=== PATIENT | male | born 1955 | race Two or more races ===

== ENCOUNTER 2019-12-06 04:06 | Emergency (ER) | payer SELFPAY ==
[~2019-12-06] VITALS: Ht 170.2 cm; Wt 69.0 kg
[2019-12-06] MEDS ORDERED: LORAZEPAM 1MG TABLET PO ONE (04:45)
[2019-12-06 05:36] VITALS: BP 148/74
== END 2019-12-06 06:01 | disposition home or self-care (01) ==
LOC: ER 04:06
DX: F43.0 Acute stress reaction (principal); I10 Essential (primary) hypertension
CPT/HCPCS: 93005; 99283